=== PATIENT | female | born 1980 | race Caucasian/White ===

== ENCOUNTER 2017-12-09 05:53 | Emergency (ER) | payer OTHER ==
[2017-12-09] MEDS ORDERED: Albuterol 6.7 GM Inhaler INH ONE ×2 (05:54→06:27)
[2017-12-09] MEDS ORDERED: Albuterol/Ipratropium 3.0-0.5 MG/3 ML Neb Soln NEB ONE (05:56)
[2017-12-09] MEDS ORDERED: Ibuprofen 600 MG Tab PO ONE (06:04)
--- NOTE | 2017-12-09 06:04 | EDM.PDOC ---
ED HPI GENERAL MEDICAL PROBLEM - General Chief Complaint: Respiratory Problem Stated Complaint: HARD TIME BREATHING [id number] Time Seen by Provider: 12/09/17 06:01 Source of Information: Reports: Patient History Limitations: Reports: No Limitations - History of Present Illness INITIAL COMMENTS - FREE TEXT/NARRATIVE: gives h/o asthma, uses inhalers but not working tonight. also cough and body aches. Generalized Pain Score (Numeric/FACES): 4 - Related Data Allergies Allergy/AdvReac Type Severity Reaction Status Date / Time Penicillins Allergy Hives Verified 12/09/17 05:57 Home Meds: Home Meds Albuterol [IJD: Albuterol HFA] 2 puff .XX Q4HR PRN 12/09/17 [History] Budesonide/Formoterol Fumarate [Symbicort 160-4.5 Mcg Inhaler] 2 puff IH BID [History] Escitalopram [Lexapro] 30 mg PO DAILY 12/09/17 [History] ED ROS GENERAL - Review of Systems Review Of Systems: ROS reveals no pertinent complaints other than HPI. ED EXAM, GENERAL - Physical Exam Exam: See Below Exam Limited By: No Limitations General Appearance: Alert, WD/WN, Mild Distress, Other (cough spasm) Ears: Hearing Grossly Normal Throat/Mouth: Normal Voice, No Airway Compromise Head: Atraumatic Neck: Non-Tender, Full Range of Motion Respiratory/Chest: Decreased Breath Sounds, Rhonchi, Wheezing. No: Retractions , Splinting Cardiovascular: Regular Rate, Rhythm GI/Abdominal: Soft, Non-Tender Neurological: Alert, Oriented, Normal Cognition, Normal Gait, No Motor/Sensory Deficits Psychiatric: Flat Affect Skin Exam: Warm, Dry, Normal Color Lymphatic: No Adenopathy Course - Vital Signs Last Recorded V/S: Last Vital Signs Temp 38.8 C H 12/09/17 06:07 Pulse 103 H 12/09/17 06:02 Resp 20 12/09/17 06:02 BP 121/80 12/09/17 06:02 Pulse Ox 100 12/09/17 06:02 - Orders/Labs/Meds Orders: Active Orders 24 hr Category Date Time Status RT Aerosol Therapy [RC] ASDIRECTED Care 12/09/17 05:56 Active Meds: Medications Discontinued Medications Generic Name Dose Route Start Last Admin Trade Name Freq PRN Reason Stop Dose Admin Albuterol Confirm 12/09/17 06:27 Proventil Hfa Administered 12/09/17 06:28 Dose 6.7 gm INH .STK-MED ONE Albuterol/Ipratropium 3 ml 12/09/17 05:56 12/09/17 06:00 Duoneb 3.0-0.5 Mg/3 Ml NEB 12/09/17 05:57 3 ml ONETIME ONE Administration Benzonatate 100 mg 12/09/17 06:25 Tessalon Perles PO 12/09/17 06:26 ONETIME ONE Ibuprofen 600 mg 12/09/17 06:04 12/09/17 06:07 Motrin PO 12/09/17 06:05 600 mg ONETIME ONE Administration Prednisone 20 mg 12/09/17 06:28 Prednisone PO 12/09/17 06:29 ONETIME ONE - Re-Assessments/Exams Free Text/Narrative Re-Assessment/Exam: 12/09/17 06:30 s/p duoneb = much better Departure - Departure Time of Disposition: 06:30 Disposition: Home, Self-Care 01 Condition: Good Clinical Impression: Bronchospasm with bronchitis, acute Exacerbation of asthma Qualifiers: Asthma severity: moderate Asthma persistence: unspecified Qualified Code(s): J45.901 - Unspecified asthma with (acute) exacerbation - Discharge Information Instructions: Acute Bronchitis, [id number] Forms: ED Department Discharge Additional Instructions: 1) rest as much as possible 2) don't sleep flat at night 3) use humidifier in room 4) recheck as needed rx given; medrol dospak tessalon pearles 100mg bid prn x 12 - My Orders Last 24 Hours: My Active Orders 12/09/17 05:56 RT Aerosol Therapy [RC] ASDIRECTED - Assessment/Plan Last 24 Hours: My Active Orders 12/09/17 05:56 RT Aerosol Therapy [RC] ASDIRECTED
[2017-12-09] MEDS ORDERED: Benzonatate 100 MG Cap PO ONE (06:25)
[2017-12-09] MEDS ORDERED: predniSONE 20 MG Tab PO ONE (06:28)
== END 2017-12-09 06:37 | disposition home or self-care (01) ==
LOC: DL.ED 05:53
DX: J45.901 Unspecified asthma with (acute) exacerbation (principal); J20.9 Acute bronchitis, unspecified; Z88.0 Allergy status to penicillin; Z79.899 Other long term (current) drug therapy
CPT/HCPCS: 87804; 94640; 99285; A9270; 99284